=== PATIENT | male | born 1970 | race Caucasian/White ===

== ENCOUNTER → 2019-06-04 | Outpatient (CLI) | payer OTHER ==
[~2019-06-04] MED LIST: OXYC-12 PO
== END ==
LOC: CARD 12:09
PROVIDERS: ATTEND Internal Medicine Cardiovascular Disease
DX: R06.02 Shortness of breath (principal)
CPT/HCPCS: 93306; 93351

== ENCOUNTER 2019-06-19 19:51 | Outpatient (CLI) | payer OTHER | END 2019-06-20 07:03 | disposition home or self-care (01) | LOC: SLEEP 19:51 | PROVIDERS: ATTEND Otolaryngology Otolaryngology/Facial Plastic Surgery | DX: G47.33 Obstructive sleep apnea (adult) (pediatric) (principal) | CPT/HCPCS: 95810 ==

== ENCOUNTER → 2021-04-24 | Outpatient (CLI) | payer BC ==
--- NOTE | 2021-04-24 12:03 | Diagnostic Imaging Report ---
PROCEDURE: CT chest without contrast. TECHNIQUE: Multiple contiguous axial images were obtained through the chest without the use of intravenous contrast. Auto Exposure Controls were utilized during the CT exam to meet ALARA standards for radiation dose reduction. INDICATION: Dyspnea, history of COVID, now with cough and shortness of air. COMPARISON: I have no previous for comparison. FINDINGS: No infiltrate or ground-glass densities. No bony destructive process or findings of fibrosis. No blebs, bullous disease, or air cysts. There is no bronchiectasis. There is a tiny likely partly calcified subpleural nodule as a benign finding, 4 mm, in right upper lobe. No suspicious mass. No spiculated lesion. No thoracic lymphadenopathy. The aorta is nonaneurysmal. There is no pleural or pericardial effusion. A few benign salvador granulomatous foci are present. No suspicious lymph nodes. No acute chest wall lesion. There is no pleural or pericardial effusion. The visualized upper abdomen shows some nonspecific stranding of the fat along the mesenteric root, which may be incidental or reflect some mild mesenteric panniculitis. IMPRESSION: 1. No ground-glass densities, infiltrate, or suspicious nodules. Benign-appearing subpleural scar in the right upper lobe with additional calcified benign granulomatous foci noted. 2. Nonspecific stranding of the upper abdominal fat along the mesenteric root, which may be chronic and incidental or reflect mild mesenteric panniculitis. Dictated by: Dictated on workstation # [id number]
== END ==
LOC: RAD 10:27
PROVIDERS: ATTEND Internal Medicine Cardiovascular Disease
DX: J98.4 Other disorders of lung (principal); Z86.16 Personal history of COVID-19
CPT/HCPCS: 71250

== ENCOUNTER 2023-07-23 07:23 | Outpatient (CLI) | payer BC, OTHER | END 2023-07-23 07:55 | LOC: SLEEP 07:23 | PROVIDERS: ATTEND Otolaryngology Otolaryngology/Facial Plastic Surgery | DX: G47.33 Obstructive sleep apnea (adult) (pediatric) (principal) | CPT/HCPCS: G0399 ==